=== PATIENT | female | born 1990 | race Caucasian/White ===

== ENCOUNTER 2018-09-13 11:40 | Inpatient (IN) | payer MEDICAID ==
[2018-09-13 12:45] LABS: ADD MAN DIFF? NO
[2018-09-13 12:47] LABS: WHITE BLOOD COUNT 7.8 10^3/ul (4.8-10.8)
[2018-09-13 12:47] LABS: BASOPHILS % 0.3 % (0.0-2.0); EOSINOPHILS % 0.4 % (0.0-7.0); HEMATOCRIT 36.4 % (37.0-47.0); HEMOGLOBIN 12.2 g/dl (12.0-16.0); LYMPHOCYTES # 2.1 10^3/ul (0.8-2.9); LYMPHOCYTES % 26.3 % (15.0-51.0); MEAN CORPUSCULAR HEMOGLOBIN 29.2 pg (29.0-33.0); MEAN CORPUSCULAR HGB CONC 33.5 g/dl (32.0-37.0); MEAN CORPUSCULAR VOLUME 87.1 fl (82.0-101.0); MEAN PLATELET VOLUME 10.1 fl (7.4-10.4); MONOCYTE # 0.6 10^3/ul (0.3-0.9); NEUTROPHIL # 5.2 10^3/ul (1.6-7.5); NEUTROPHILS % 65.6 % (39.0-77.0); PLATELET COUNT 240 10^3/UL (140-415); RED BLOOD COUNT 4.18 10^6/ul (4.20-5.40); RED CELL DISTRIBUTION WIDTH 13.3 % (11.5-14.5)
[2018-09-13 12:51] LABS: INR 0.91; PROTIME 12.4 Sec (11.9-14.9)
[2018-09-13 12:52] LABS: PARTIAL THROMBOPLASTIN TIME 26.5 Sec (23.0-35.0)
[2018-09-13 12:53] LABS: ALANINE AMINOTRANSFERASE 7 IU/L (13-69); ALBUMIN 3.5 g/dl (3.3-4.9); ALBUMIN/GLOBULIN RATIO 1.02; ALKALINE PHOSPHATASE 267 IU/L (42-121); ANION GAP 8 (5-13); ASPARTATE AMINO TRANSFERASE 22 IU/L (15-46); BLOOD UREA NITROGEN 13 mg/dl (7-20); CALCIUM 8.6 mg/dl (8.4-10.2); CARBON DIOXIDE 21 mmol/L (21-31); CHLORIDE 108 mmol/L (97-110); CREATININE 0.72 mg/dl (0.44-1.00); Estimated GFR > 60 mL/min (>60); GLUCOSE 96 mg/dl (70-220); SODIUM 137 mmol/L (135-144); TOTAL PROTEIN 6.9 g/dl (6.1-8.1)
[2018-09-13 12:55] LABS: ADD UMIC NO; UR ASCORBIC ACID NEGATIVE (NEGATIVE); UR BILIRUBIN (Dip) NEGATIVE (NEGATIVE); UR BLOOD (Dip) NEGATIVE (NEGATIVE); UR CLARITY CLEAR (CLEAR); UR COLOR STRAW (YELLOW); UR GLUCOSE (Dip) NEGATIVE (NEGATIVE); UR KETONES (Dip) NEGATIVE (NEGATIVE); UR LEUKOCYTE ESTERASE (Dip) NEGATIVE Leu/ul (NEGATIVE); UR NITRITE (Dip) NEGATIVE (NEGATIVE); UR TOTAL PROTEIN (Dip) NEGATIVE (NEGATIVE); UR UROBILINOGEN (Dip) NEGATIVE (NEGATIVE)
[2018-09-13] MEDS ORDERED: BUTORPHANOL 2 MG INJ IV (14:30)
[2018-09-13] MEDS ORDERED: LIDOCAINE 1% (MPF) 30 ML INJ INJ (14:30)
[2018-09-13] MEDS ORDERED: MISOPROSTOL 200 MCG TAB PR (14:30)
[2018-09-13] MEDS ORDERED: METHYLERGONOVINE 0.2 MG INJ IM (14:30)
[2018-09-13] MEDS ORDERED: BUTORPHANOL 1 MG INJ IV (14:30)
[2018-09-13] MEDS ORDERED: CARBOPROST 250 MCG INJ IM (14:30)
[2018-09-13] MEDS ORDERED: OXYTOCIN 30 UNITS/LR 500 ML IV ×2 (14:30)
[2018-09-13] MEDS ORDERED: IBUPROFEN 600 MG TAB PO (14:30)
[2018-09-13] MEDS: LACTATED RINGER'S 1,000 ML IV ×2 (15:06→19:04)
[2018-09-13] MEDS: CEFAZOLIN 2 GM/50 ML (PMX) 50 ML IVPB (15:07)
[2018-09-13 16:12] LABS: RAPID PLASMA REAGIN NONREACTIVE (NR)
[2018-09-13] MEDS ORDERED: CEFAZOLIN 1 GM/50 ML (PMX) 50 ML IVPB (22:00)
[2018-09-13] MEDS: CEFAZOLIN 1 GM/50 ML (PMX) 50 ML IVPB (22:54)
[2018-09-14] MEDS: LACTATED RINGER'S 1,000 ML IV ×3 (02:43→18:19)
[2018-09-14] MEDS: OXYTOCIN 30 UNITS/LR 500 ML IV (03:09)
[2018-09-14] MEDS: CEFAZOLIN 1 GM/50 ML (PMX) 50 ML IVPB ×3 (05:55→19:58)
[2018-09-14] MEDS: MISOPROSTOL 50 MCG CAPSULE VAG ×3 (13:58→22:35)
[2018-09-15] MEDS: LACTATED RINGER'S 1,000 ML IV ×3 (02:28→11:59)
[2018-09-15] MEDS: MISOPROSTOL 50 MCG CAPSULE VAG ×3 (02:47→09:00)
[2018-09-15] MEDS: CEFAZOLIN 1 GM/50 ML (PMX) 50 ML IVPB ×2 (03:59→11:56)
[2018-09-15] MEDS ORDERED: ZOLPIDEM 5 MG TAB PO (10:30)
[2018-09-15] MEDS ORDERED: HYDROmorphONE 0.5 MG/0.5 ML SYG IV ×2 (10:30)
[2018-09-15] MEDS ORDERED: ONDANSETRON 4 MG INJ IV (10:30)
[2018-09-15] MEDS ORDERED: NALOXONE (0.4 MG/ML) INJ IV (10:30)
[2018-09-15] MEDS ORDERED: DIPHENHYDRAMINE 50 MG INJ IV (10:30)
[2018-09-15] MEDS ORDERED: FENTAnyl 2MCG/ML-ROPIV 0.2% 100 ML BAG EPI (10:30)
[2018-09-15] MEDS ORDERED: KETOROLAC 30 MG INJ IV (10:30)
[2018-09-15] MEDS: OXYTOCIN 30 UNITS/LR 500 ML IV ×2 (11:04→13:55)
[2018-09-15] MEDS: LACTATED RINGER'S 1,000 ML IV* ×2 (15:36→17:43)
[2018-09-15] MEDS ORDERED: ACETAMINOPHEN 325 MG TAB PO (16:00)
[2018-09-15] MEDS ORDERED: DIBUCAINE 1% 30 GM OINT TOP (16:00)
[2018-09-15] MEDS ORDERED: METHYLERGONOVINE 0.2 MG INJ IM (16:00)
[2018-09-15] MEDS ORDERED: CARBOPROST 250 MCG INJ IM (16:00)
[2018-09-15] MEDS ORDERED: MISOPROSTOL 200 MCG TAB PR (16:00)
[2018-09-15] MEDS ORDERED: OXYTOCIN 30 UNITS/LR 500 ML IV (16:00)
[2018-09-15] MEDS ORDERED: HYDROCODONE/APAP (5/325) TAB PO (16:00)
[2018-09-15] MEDS: MAGNESIUM SULFATE 4 GM/100 ML 100 ML IVPB (16:19)
[2018-09-15] MEDS: MAGNESIUM SULFATE 20 GM/500 ML 500 ML IV ×2 (16:21→21:18)
[2018-09-15] MEDS: WITCH HAZEL/GLYCERIN PAD PR (17:43)
[2018-09-15] MEDS: BENZOCAINE 20% 56 ML SPRAY TOP (17:43)
[2018-09-15] MEDS: IBUPROFEN 600 MG TAB PO ×2 (17:44→23:42)
[2018-09-15] MEDS: SENNA/DOCUSATE NA (8.6MG/50MG) TAB PO (21:16)
[2018-09-16 01:42] LABS: MAGNESIUM 4.2 mg/dl (1.7-2.5)
[2018-09-16] MEDS: LACTATED RINGER'S 1,000 ML IV* (03:55)
[2018-09-16] MEDS: IBUPROFEN 600 MG TAB PO ×4 (05:43→23:32)
[2018-09-16 07:43] LABS: ADD MAN DIFF? NO
[2018-09-16 07:50] LABS: BASOPHILS % 0.4 % (0.0-2.0); EOSINOPHILS # 0.1 10^3/ul (0.0-0.5); HEMATOCRIT 31.2 % (37.0-47.0); HEMOGLOBIN 10.5 g/dl (12.0-16.0); LYMPHOCYTES # 2.5 10^3/ul (0.8-2.9); LYMPHOCYTES % 23.5 % (15.0-51.0); MEAN CORPUSCULAR HEMOGLOBIN 29.3 pg (29.0-33.0); MEAN CORPUSCULAR HGB CONC 33.7 g/dl (32.0-37.0); MEAN CORPUSCULAR VOLUME 87.2 fl (82.0-101.0); MONOCYTE # 0.8 10^3/ul (0.3-0.9); MONOCYTES % 7.5 % (0.0-11.0); PLATELET COUNT 165 10^3/UL (140-415); RED BLOOD COUNT 3.58 10^6/ul (4.20-5.40); RED CELL DISTRIBUTION WIDTH 13.7 % (11.5-14.5)
[2018-09-16 07:50] LABS: WHITE BLOOD COUNT 10.5 10^3/ul (4.8-10.8)
[2018-09-16 08:12] LABS: MAGNESIUM 3.7 mg/dl (1.7-2.5)
[2018-09-16] MEDS: SENNA/DOCUSATE NA (8.6MG/50MG) TAB PO ×2 (09:15→21:18)
[2018-09-17] MEDS: IBUPROFEN 600 MG TAB PO ×3 (05:18→17:51)
[2018-09-17] MEDS: SENNA/DOCUSATE NA (8.6MG/50MG) TAB PO (09:18)
[2018-09-17] MEDS: DIPHTH/TET/ACEL PERTUSS (ADULT) 0.5 ML VIAL IM* (13:21)
== END 2018-09-17 18:28 | disposition home or self-care (01) | DRG 807 ==
LOC: OBT 11:40 → PP1 09-15 15:16 → L-D 11:40 → OBT 14:09 → L-D 14:00
PROC: 10E0XZZ Delivery of Products of Conception, External Approach (ICD-10-PCS; principal; 2018-09-15)
DX: O14.14 Severe pre-eclampsia complicating childbirth (principal); O69.81X0 Labor and delivery complicated by cord around neck, without compression, not applicable or unspecified; O48.0 Post-term pregnancy; O99.824 Streptococcus B carrier state complicating childbirth; O13.4 Gestational [pregnancy-induced] hypertension without significant proteinuria, complicating childbirth; O90.81 Anemia of the puerperium; D64.9 Anemia, unspecified; Z37.0 Single live birth; Z3A.40 40 weeks gestation of pregnancy
CPT/HCPCS: 62319; 76815; 76818; 80053; 81003; 83735; 84560; 85025; 85384; 85610; 85730; 86592; 86850; 86900; 86901